=== PATIENT | female | born 1990 | race Caucasian/White ===

== ENCOUNTER 2021-09-14 23:18 | Inpatient (IN) ==
[~2021-09-14 23:18] MED LIST: *HR* Nalbuphine 10 MG/ML AMPUL IV PRN; Azithromycin 500 MG in 0.9 % Sodium Chloride 250 ML IVPB PRN; Famotidine 20 MG/2 ML VIAL IVP PRN; Metoclopramide 10 MG/2 ML VIAL IVP PRN; Naloxone 0.4 MG/ML INJ IVP PRN; Ondansetron 4 MG/2 ML VIAL IVP PRN; Penicillin G Potassium 5,000,000 UNIT in 0.9 % Sodium Chloride Mini Bag 100 ML IVPB ONE
[2021-09-14] MEDS ORDERED: Ringers Solution, Lactated 1,000 ML IVC SCH (23:30)
[2021-09-15 00:02] LABS: Basophils % 0.3 %; Eosinophils # 0.1 K/mcL (0.0-0.6); Eosinophils % 0.8 %; Hematocrit 36.6 % (35.3-44.9); Hemoglobin 12.5 g/dL (11.5-15.4); Immature Granulocytes % 0.4 % (0-4); Lymphocytes # 2.1 K/mcL (0.6-4.6); Lymphocytes % 16.6 %; Mean Corpuscular HGB Conc 34.2 g/dL (31.6-35.5); Mean Corpuscular Hemoglobin 29.5 pg (28.0-33.3); Mean Corpuscular Volume 86.3 fL (83.0-100.0); Mean Platelet Volume 10.2 fL (9.4-12.4); Monocytes # 1.1 K/mcL (0.0-1.3); Monocytes % 8.9 %; Platelet Count 226 K/mcL (140-400); Red Blood Count 4.24 M/mcL (3.82-4.97); Red Cell Distribution Width 12.9 % (11.5-14.5); White Blood Count 12.4 K/mcL (4.3-11.1)
[2021-09-15 00:35] LABS: Amphetamine Screen,Urine Negative ng/mL (Cutoff=1000); Barbiturate Screen,Urine Negative ng/mL (Cutoff=200); Benzodiazepines Screen,Urine Negative ng/mL (Cutoff=200); Cannabinoid Screen,Urine Negative ng/mL (Cutoff = 50); Cocaine Screen,Urine Negative ng/mL (Cutoff= 300); Opiate Screen,Urine Negative ng/mL (Cutoff=300); Phencyclidine Screen,Urine Negative ng/mL (Cutoff=25)
[2021-09-15 00:50] LABS: Influenza A PCR Negative (Negative); Influenza B PCR Negative (Negative); Resp. Syncytial Virus PCR Negative (Negative)
[2021-09-15 01:01] LABS: SARS-CoV-2 by PCR (In House) Negative (Negative)
[2021-09-15] MEDS ORDERED: Oxytocin 30 UNIT/503 ML BAG IVC ONE (03:37)
[2021-09-15] MEDS: Penicillin G Potassium 2,500,000 UNIT/105 ML MLS IVPB SCH ×2 (03:45→07:59)
[2021-09-15] MEDS ORDERED: *HR* FentaNYL (PF) 100 MCG/2 ML VIAL ONE (04:23)
[2021-09-15] MEDS ORDERED: Ropivacaine/PF 0.2% 20 ML VIAL ONE (04:23)
[2021-09-15] MEDS ORDERED: Epidural Premix (fent/bupiv) 110 ML EP ONE (04:24)
[2021-09-15] MEDS ORDERED: Oxytocin 30 UNIT/503 ML BAG IVC SCH ×2 (06:45→12:04)
[2021-09-15] MEDS ORDERED: EPHEDrine 50 MG/ML VIAL IVP PRN (08:22)
[2021-09-15] MEDS ORDERED: Epidural Premix (fent/bupiv) 110 ML EP SCH (08:30)
[2021-09-15] MEDS ORDERED: Ondansetron ODT 4 MG TAB.RAPDIS SL PRN (12:04)
[2021-09-15] MEDS ORDERED: Lanolin 7 G OINT...G. TP PRN (12:04)
[2021-09-15] MEDS ORDERED: Measles/Mumps/Rubella Vacc 0.5 ML VIAL SQ PRN (12:04)
[2021-09-15] MEDS ORDERED: Rho Immune Globulin 1,500 UNIT SYRINGE IM PRN (12:04)
[2021-09-15] MEDS: Ibuprofen 600 MG TABLET PO SCH ×2 (13:02→18:40)
[2021-09-15] MEDS: Acetaminophen 325 MG TABLET PO SCH ×2 (13:03→18:40)
[2021-09-15] MEDS ORDERED: Preparation H Ointment 57 GM TUBE RC PRN (17:50)
[2021-09-15] MEDS: Benzocaine/Menthol 56 GM AEROSOL SPRAY TP PRN (18:39)
[2021-09-16] MEDS: Ibuprofen 600 MG TABLET PO SCH ×2 (00:20→07:59)
[2021-09-16] MEDS: Acetaminophen 325 MG TABLET PO SCH (00:22)
[2021-09-16 04:03] VITALS: O2SAT 100
[2021-09-16 07:12] VITALS: BP 129/74; PULSE 79; TEMP 98.6
[2021-09-16] MEDS: Benzocaine/Menthol 56 GM AEROSOL SPRAY TP PRN (07:59)
[2021-09-16] MEDS ORDERED: Prenatal Vit/FA 1 EACH TABLET PO SCH (09:00)
== END 2021-09-16 10:17 | disposition home or self-care (01) | DRG 560 ==
LOC: 1NENULAB → 1NENUOBS 09-15 12:22
PROVIDERS: ADMIT Obstetrics & Gynecology; ATTEND Obstetrics & Gynecology